=== PATIENT | male | born 1985 | race Two or more races ===

== ENCOUNTER 2019-05-08 08:00 | Outpatient (CLI) | payer BC ==
[2019-05-08 11:59] LABS: BASOPHILS # (AUTO) 0.1 10^3/uL (0.0-0.1); BASOPHILS % (AUTO) 0.5 %; EOSINOPHILS % (AUTO) 0.1 %; HGB - HEMOGLOBIN 13.6 g/dL (14.0-18.0); LYMPHOCYTES # (AUTO) 1.7 10^3/uL (1.5-3.5); LYMPHOCYTES % (AUTO) 18.3 %; MEAN CORPUSCULAR HEMOGLOBIN 29.6 pg (27.0-31.0); MEAN PLATELET VOLUME 11.1 fL (7.4-11.4); MONOCYTES # (AUTO) 0.6 10^3/uL (0.0-1.0); MONOCYTES % (AUTO) 6.9 %; NEUTROPHILS # (AUTO) 6.7 10^3/uL (1.5-6.6); NEUTROPHILS % (AUTO) 73.9 %; PLT - PLATELET COUNT 232 10^3/uL (130-450); RED CELL DISTRIBUTION WIDTH 13.9 % (12.0-15.0); WHITE BLOOD COUNT 9.1 x10^3/uL (4.8-10.8)
[2019-05-08 12:11] LABS: ALBUMIN/GLOBULIN RATIO 1.3 (1.0-2.2); ALKALINE PHOSPHATASE 45 IU/L (42-121); ALT ALANINE AMINOTRANSFERASE 17 IU/L (10-60); AST ASPARTATE AMINOTRANSFERASE 16 IU/L (10-42); BILIRUBIN,TOTAL 0.3 mg/dL (0.2-1.0); BUN - BLOOD UREA NITROGEN 16 mg/dL (6-20); CALCIUM 9.4 mg/dL (8.5-10.3); CARBON DIOXIDE - CO2 25 mmol/L (21-32); CHLORIDE 107 mmol/L (101-111); CHOL/HDL RATIO 3.5 (<5.0); CHOLESTEROL 169 mg/dL; CREATININE 0.7 mg/dL (0.6-1.2); GFR - MDRD 130 (>89); GLUCOSE 121 mg/dL (70-100); HDL CHOLESTEROL 48 mg/dL; LDL CHOLESTEROL,CALCULATED 102 mg/dL; LDL/HDL RATIO 2.1 (<3.6); SODIUM 141 mmol/L (135-145); TOTAL PROTEIN 7.2 g/dL (6.7-8.2); VLDL CHOLESTEROL 19 mg/dL
[2019-05-08 12:27] LABS: HB2 TOTAL 14.5 g/dL; HEMOGLOBIN A1C 0.46 g/dL; HEMOGLOBIN A1C % 5.1 % (4.6-6.2)
== END 2019-05-08 23:59 | disposition home or self-care (01) ==
LOC: LAB.N 08:00
PROVIDERS: ATTEND Family Medicine
DX: E78.5 Hyperlipidemia, unspecified (principal); R73.03 Prediabetes
CPT/HCPCS: 36415; 80053; 80061; 83036; 83721; 84443; 85025

== ENCOUNTER 2021-05-26 03:01 | Outpatient (CLI) | payer SELFPAY | END 2021-05-26 03:02 | disposition critical access hospital (66) | LOC: EMS 03:01 | DX: R07.9 Chest pain, unspecified (principal) | CPT/HCPCS: A0425; A0427 ==

== ENCOUNTER 2021-05-26 03:17 | Emergency (ER) | payer SELFPAY ==
--- NOTE | 2021-05-26 03:24 | ED Physician Documentation ---
PD HPI CHEST PAIN - Stated complaint Stated Complaint: CP - History obtained from History obtained from: Patient - History of Present Illness Timing - onset: How many hours ago (2), Today Timing - onset during: Rest, Light activity Timing - duration: Hours Timing - details: Abrupt onset, Still present, Waxing and waning. No: Intermittant Quality: Aching, Sharp, Pain Location: Left chest Radiation: Back Improved by: Rest Worsened by: Inspiration, Movement. No: Palpation Associated symptoms: Shortness of air. No: Nausea, General Weakness Similar symptoms before: Has not had sx before Recently seen: Not recently seen Review of Systems Constitutional: denies: Fever, Chills Ears: denies: Loss of hearing Nose: denies: Rhinorrhea / runny nose, Congestion Throat: denies: Sore throat Respiratory: denies: Dyspnea, Cough, Hemoptysis Skin: denies: Rash, Lesions Musculoskeletal: denies: Neck pain, Back pain PD PAST MEDICAL HISTORY - Past Medical History Cardiovascular: None Respiratory: None Neuro: None Endocrine/Autoimmune: None - Present Medications Home Medications: Ambulatory Orders Medication Instructions Recorded Confirmed No Known Home Medications 05/26/21 05/26/21 - Allergies Allergies/Adverse Reactions: Allergies Allergy/AdvReac Type Severity Reaction Status Date / Time No Known Drug Allergies Allergy Verified 05/26/21 03:20 PD ED PE NORMAL - Vitals Vital signs reviewed: Yes - General General: Alert and oriented X 3, No acute distress, Well developed/nourished - HEENT HEENT: Moist mucous membranes, Pharynx benign - Neck Neck: Supple, no meningeal sign, No adenopathy - Cardiac Cardiac: RRR, No murmur - Respiratory Respiratory: No respiratory distress, Clear bilaterally - Abdomen Abdomen: Normal bowel sounds, Soft - Rectal Rectal: Deferred - Back Back: No CVA TTP - Derm Derm: Normal color, Warm and dry - Extremities Extremities: No edema, No calf tenderness / cord - Neuro Neuro: Alert and oriented X 3, No motor deficit, No sensory deficit Results - Vitals Vitals: Oxygen O2 Source Room air - EKG (time done) 03:16 Rate: Rate (enter#) (87) Rhythm: NSR Union: Normal Intervals: Normal MI Ischemia: Normal ST segments. No: ST elevation c/w ischemia, ST depression - Labs Labs: Laboratory Tests 0905/26/21 05/26/21 03:53 03:53 03:53 WBC 10.2 RBC 4.29 L Hgb 12.8 L Hct 37.4 L MCV 87.2 MCH 29.8 MCHC 34.2 RDW 13.3 Plt Count 201 MPV 10.0 Neut # (Auto) 6.8 H Lymph # (Auto) 2.4 [place] # (Auto) 0.8 Eos # (Auto) 0.1 Baso # (Auto) 0.1 Absolute Nucleated RBC 0.00 Nucleated RBC % 0.0 Sodium 140 Potassium 3.3 L Chloride 104 Carbon Dioxide 26 Anion Gap 10.0 BUN 11 Creatinine 0.7 Estimated GFR (MDRD) 128 Glucose 107 H Calcium 9.1 Total Bilirubin 0.7 AST 13 ALT 12 Alkaline Phosphatase 37 L Troponin I High Sens 2.8 Total Protein 6.6 L Albumin 4.1 Globulin 2.5 Albumin/Globulin Ratio 1.6 Lipase 45 - Rads (name of study) chest xray Radiology: Prelim report reviewed (no acut cardiopulmonary process), See rad report PD MEDICAL DECISION MAKING - ED course Complexity details: considered differential (hurts to move, breathe, and work lightly with the arms/shoulders. ), d/w patient Departure - Departure Disposition: 01 Home, Self Care Clinical Impression: Chest wall pain Condition: Stable Record reviewed to determine appropriate education?: Yes Instructions: ED Strain Chest Wall Comments: Your EKG, chest x-ray, blood tests are normal. No signs of pneumonia, collapsed lung, fluid around the lung, heart attack or abnormal heart rhythm. I presume your pain is musculoskeletal in the chest wall given the character and location. I would suggest some anti-inflammatory such as ibuprofen 600 mg 3 times a day with food for the next several days to week. Add Tylenol if needed for pains. Recheck if not better over the next several days to week. Return if more symptoms develop such as fevers, cough, rash, worse pain or other concerns. Discharge Date/Time: 05/26/21 06:10
[2021-05-26] MEDS ORDERED: ACETAMINOPHEN 325 MG TABLET PO STA (03:34)
[2021-05-26] MEDS ORDERED: KETOROLAC 15 MG/ML VIAL IVP STA (03:34)
[2021-05-26 04:00] LABS: BASOPHILS # (AUTO) 0.1 10^3/uL (0.0-0.1); BASOPHILS % (AUTO) 0.6 %; EOSINOPHILS # (AUTO) 0.1 10^3/uL (0.0-0.7); EOSINOPHILS % (AUTO) 0.7 %; HCT - HEMATOCRIT 37.4 % (42.0-52.0); HGB - HEMOGLOBIN 12.8 g/dL (14.0-18.0); LYMPHOCYTES # (AUTO) 2.4 10^3/uL (1.5-3.5); LYMPHOCYTES % (AUTO) 23.7 %; MEAN CORPUSCULAR HEMOGLOBIN 29.8 pg (27.0-31.0); MEAN CORPUSCULAR HGB CONC 34.2 g/dL (32.0-36.0); MEAN CORPUSCULAR VOLUME 87.2 fL (80.0-94.0); MONOCYTES # (AUTO) 0.8 10^3/uL (0.0-1.0); MONOCYTES % (AUTO) 7.7 %; NEUTROPHILS # (AUTO) 6.8 10^3/uL (1.5-6.6); NEUTROPHILS % (AUTO) 66.8 %; PLT - PLATELET COUNT 201 10^3/uL (130-450); RED BLOOD COUNT 4.29 10^6/uL (4.70-6.10); RED CELL DISTRIBUTION WIDTH 13.3 % (12.0-15.0); WHITE BLOOD COUNT 10.2 x10^3/uL (4.8-10.8)
[2021-05-26 04:14] LABS: ALBUMIN 4.1 g/dL (3.2-5.5); ALBUMIN/GLOBULIN RATIO 1.6 (1.0-2.2); BILIRUBIN,TOTAL 0.7 mg/dL (0.2-1.0); CALCIUM 9.1 mg/dL (8.5-10.3); CREATININE 0.7 mg/dL (0.6-1.2); POTASSIUM 3.3 mmol/L (3.5-5.0); TOTAL PROTEIN 6.6 g/dL (6.7-8.2)
[2021-05-26 04:39] VITALS: BP 103/67
--- NOTE | 2021-05-26 07:21 | XRAY Report ---
PROCEDURE: Chest 1 View X-Ray INDICATIONS: Chest Pain TECHNIQUE: One view of the chest was acquired. COMPARISON: None FINDINGS: Surgical changes and devices: None. Lungs and pleura: No pleural effusions or pneumothorax. Lungs are clear. Mediastinum: Mediastinal contours appear normal. Heart size is normal. Bones and chest wall: No suspicious bony lesions. Overlying soft tissues appear unremarkable. IMPRESSION: No acute cardiopulmonary disease process. Reviewed by: Luh Chilel MD, PhD on 05/26/2021 7:20 AM PDT Approved by: Luh Chilel MD, PhD on 05/26/2021 7:20 AM PDT Station ID: [id number]
== END 2021-05-26 06:10 | disposition home or self-care (01) ==
LOC: EDUNIT# → ED 03:17
DX: R07.89 Other chest pain (principal)
CPT/HCPCS: 36415; 71045; 80053; 83690; 84484; 85025; 93005; 96374; 99284; A9270

== ENCOUNTER 2022-05-29 15:57 | Emergency (ER) | payer MEDICAID, OTHER ==
[2022-05-29] MEDS ORDERED: HYDROmorphone 1 MG/ML CARPUJECT IM STA (16:20)
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
[2022-05-29 17:26] VITALS: BP 137/97
[2022-05-29] MEDS ORDERED: BACITRACIN ZINC OINT 1 PACKET TOP STA (17:39)
[2022-05-29] MEDS ORDERED: oxyCODONE/ACET 5/325 Prepack 4 PO STA (17:55)
== END 2022-05-29 18:09 | disposition home or self-care (01) ==
LOC: ED 15:57
DX: T22.211A Burn of second degree of right forearm, initial encounter (principal); T31.0 Burns involving less than 10% of body surface; X08.8XXA Exposure to other specified smoke, fire and flames, initial encounter; Y93.89 Activity, other specified; F17.200 Nicotine dependence, unspecified, uncomplicated
CPT/HCPCS: 16020; 96372; 99281; 99283; A9270; J1170

== ENCOUNTER 2023-11-16 14:00 | Outpatient (CLI) | payer SELFPAY ==
[2023-11-16 18:07] LABS: BASOPHILS # (AUTO) 0.1 10^3/uL (0.0-0.1); BASOPHILS % (AUTO) 0.4 %; EOSINOPHILS # (AUTO) 0.2 10^3/uL (0.0-0.7); EOSINOPHILS % (AUTO) 1.4 %; HCT - HEMATOCRIT 38.6 % (42.0-52.0); HGB - HEMOGLOBIN 13.2 g/dL (14.0-18.0); LYMPHOCYTES # (AUTO) 2.5 10^3/uL (1.5-3.5); LYMPHOCYTES % (AUTO) 21.3 %; MEAN CORPUSCULAR HEMOGLOBIN 28.6 pg (27.0-31.0); MEAN CORPUSCULAR HGB CONC 34.2 g/dL (32.0-36.0); MEAN CORPUSCULAR VOLUME 83.7 fL (80.0-94.0); MEAN PLATELET VOLUME 10.3 fL (7.4-11.4); MONOCYTES # (AUTO) 0.9 10^3/uL (0.0-1.0); MONOCYTES % (AUTO) 7.6 %; NEUTROPHILS # (AUTO) 8.1 10^3/uL (1.5-6.6); PLT - PLATELET COUNT 288 10^3/uL (130-450); RED BLOOD COUNT 4.61 10^6/uL (4.70-6.10); RED CELL DISTRIBUTION WIDTH 14.2 % (12.0-15.0); WHITE BLOOD COUNT 11.8 x10^3/uL (4.8-10.8)
[2023-11-16 18:21] LABS: ALBUMIN 4.5 g/dL (3.2-5.5); ALBUMIN/GLOBULIN RATIO 1.6 (1.0-2.2); BILIRUBIN,TOTAL 0.6 mg/dL (0.2-1.0); CALCIUM 9.9 mg/dL (8.5-10.3); CREATININE 0.7 mg/dL (0.6-1.3); POTASSIUM 3.6 mmol/L (3.5-4.5); TOTAL PROTEIN 7.3 g/dL (6.4-8.9)
[2023-11-16 18:35] LABS: THYROID STIMULATING HORMONE 0.81 uIU/mL (0.34-5.60)
== END 2023-11-16 14:15 | disposition home or self-care (01) ==
LOC: LAB.N 14:00
PROVIDERS: ATTEND Family Medicine
DX: I10 Essential (primary) hypertension (principal)
CPT/HCPCS: 36415; 80050